=== PATIENT | female | born 1975 | race Caucasian/White ===

== ENCOUNTER 2016-03-12 05:17 | Day surgery (SDC) | payer OTHER ==
[2016-03-12 07:24] VITALS: BMI 25.0
[2016-03-12] MEDS ORDERED: PROPOFOL 20 ML ONE (07:42)
[2016-03-12] MEDS ORDERED: MIDAZOLAM HCL 2 MG/2 ML SINGLE DOSE VIAL ONE (07:42)
[2016-03-12] MEDS ORDERED: KETOROLAC TROMETHAMINE 30 MG/1 ML VIAL ONE (08:10)
[2016-03-12] MEDS ORDERED: DEXAMETHASONE SOD PHOSPHATE 4 MG/1 ML VIAL ONE (08:10)
[2016-03-12] MEDS ORDERED: ceFAZolin SODIUM 1 GM VIAL IVPB ONE (08:14)
[2016-03-12] MEDS ORDERED: ceFAZolin SODIUM 1 GM VIAL ONE (08:14)
--- NOTE | 2016-03-12 08:36 | HP ---
Satellite H - Chief Complaint Chief Complaint: right ankle pain s/p orif - Past Medical History Allergies/Adverse Reactions: Allergies Allergy/AdvReac Type Severity Reaction Status Date / Time No Known Drug Allergies Allergy Verified 03/12/16 07:22 ...LMP: 02/26/16 ...LMP Comment: REGULAR - Current Medications Current Medications: Medication Instructions Recorded Ibuprofen [Motrin -] 400 mg PO PRN PRN 03/06/16 Oxycodone HCl/Acetaminophen 1 - 2 tab PO Q6H PRN #40 tablet 03/12/16 [Percocet 5-325 mg Tablet] MDD 8 Satellite Physical Exam - Physical Examination Vital Signs: Vital Signs Period Temp Pulse Resp BP Sys/Frye Pulse Ox Last 24 Hr 97.8 F 61 18 100/60 99 General Appearance: Well Nourished, Well Developed, Alert & Oriented x3 ENT: Clear Lung: Normal air movement Heart: Regular rate & rhythm Extremities: Other (right ankle- incision well healed,+ swelling, +ttp, nvi) Neurological: Intact, Alert, Oriented Satellite Impression/Plan - Impression/Plan Impression: right ana pain s/p orif Operative Procedure: right ankle removal of hardware Date to be Performed: 03/12/16
--- NOTE | 2016-03-12 08:48 | OP ---
Operative Note - Note: Operative Date: 03/12/16 ([facility]) Pre-Operative Diagnosis: right ankle pain s/p orif Operation: right ankle removal of hardware Post-Operative Diagnosis: Same as Pre-op Surgeon: Emil Maxwell Anesthesiologist/PROCESS DESIGN CHEMICAL ENGINEER: Dylan Chakraborty Anesthesia: General, Local Specimens Removed: screw (1) Operative Report Dictated: Yes
[2016-03-12] MEDS ORDERED: ONDANSETRON 4 MG/2 ML VIAL IVPUSH PRN (08:49)
[2016-03-12] MEDS ORDERED: PROMETHAZINE HCL 25 MG/1 ML VIAL IVPUSH PRN (08:49)
[2016-03-12] MEDS ORDERED: LORAZEPAM CARPU-JECT 2 MG/ML DISP.SYRIN IVPUSH ONE (08:50)
[2016-03-12] MEDS ORDERED: LACTATED RINGERS SOLUTION 1,000 ML IV SCH (09:00)
--- NOTE | 2016-03-12 09:20 | OP ---
DATE OF OPERATION: 03/12/2016 PREOPERATIVE DIAGNOSIS: Status post open reduction and internal fixation of the right ankle with syndesmosis screw fixation. POSTOPERATIVE DIAGNOSIS: Status post open reduction and internal fixation of the right ankle with syndesmosis screw fixation. PROCEDURE PERFORMED: Removal of syndesmosis screw. SURGICAL ATTENDING: Emil Maxwell MD ANESTHESIA: Local with sedation. COMPLICATIONS: None. CONDITION: To the recovery room in stable condition. DESCRIPTION OF PROCEDURE: The patient was taken to the operating room on March 12, 2016. IV Kefzol was administered prophylactically prior to the case. The right lower extremity was prepped and draped in the usual sterile fashion. The site of the syndesmosis screw was localized using fluoroscopy. IV sedation, followed by infiltration of the region with 1% lidocaine was performed. A 1-inch longitudinal incision over the previous scar was incised. Hemostasis was achieved using Bovie cautery. Blunt dissection was carried down to the level of the screw. The screw was then removed. Fluoroscopy ensured that the appropriate screw was being removed. The syndesmosis was in external rotation, which revealed that the syndesmosis has indeed healed. The incision was irrigated and then closed with 3-0 nylon horizontal mattress suture. A sterile pressure dressing was applied. The patient was awakened from anesthesia and transferred to the recovery room in stable condition, without complication. Estimated blood loss was negligible. EMIL MAXWELL M.D. SEAN/[id number]
[2016-03-12 10:23] VITALS: TEMP 97.6
[2016-03-12] MEDS ORDERED: oxyCODONE HCL 5 MG TABLET PO PRN (10:37)
[2016-03-12 13:47] VITALS: BP 106/57; PULSE 54
--- NOTE | 2016-03-13 09:21 | PATH ---
Surgical Pathology Report Patient Name: EDNA IZAGUIRRE [facility]. Rec. #: [id number] /Age/Gender: 1975 (Age: 41) / F Account: [id number] Location: [facility] SURGICAL Taken: 03/12/2016 Received: 03/12/2016 Reported: 03/13/2016 Physicians: Emil Maxwell M.D. Specimen(s) Received HARDWARE (SCREW) RIGHT ANKLE Clinical History Hardware syndesmosis screw right ankle Final Diagnosis ORTHOPEDIC HARDWARE, RIGHT ANKLE, REMOVAL: METALLIC SCREW CONSISTENT WITH ORTHOPEDIC HARDWARE (GROSS ONLY). Electronically Signed Loyd Ramirez M.D. Gross Description Received fresh, labeled "hardware screw right ankle," is a 4.9 cm in length pearson metallic screw. No soft tissue is present. No sections are submitted, gross only. /03/12/2016 saudi03/12/2016
== END 2016-03-12 12:00 | disposition home or self-care (01) ==
LOC: JASU-SURG 05:17
PROVIDERS: ATTEND Orthopaedic Surgery
PROC: 0QPJ04Z Removal of Internal Fixation Device from Right Fibula, Open Approach (ICD-10-PCS; principal; 2016-03-12 08:00)
DX: T84.84XA Pain due to internal orthopedic prosthetic devices, implants and grafts, initial encounter (principal)
CPT/HCPCS: 76000-TC; 84703; 88300-TC; 94760